=== PATIENT | female | born 1990 | race Caucasian/White ===

== ENCOUNTER 2017-05-16 16:55 | Inpatient (IN) | payer MEDICAID ==
[~2017-05-16] VITALS: Ht 170.2 cm; Wt 95.3 kg
--- NOTE | 2017-05-16 16:56 | NUR ---
PT BIBA TO BED 10
[2017-05-16 17:00] VITALS: BP 146/95
[2017-05-16] MEDS ORDERED: LORazepam 2 MG/ML VIAL IM/IVP STA ×2 (17:04→19:16)
[2017-05-16] MEDS ORDERED: diphenhydrAMINE 50 MG/ML VIAL IM ONE (17:05)
[2017-05-16] MEDS ORDERED: HALOPERIDOL IM 5 MG/ML VIAL IM ONE ×2 (17:05→19:20)
--- NOTE | 2017-05-16 17:05 | NUR ---
PT COMES TO ER, AGITATED, SCREAMING, [place] [employer] AT BEDSIDE, PT COMES IN WITH 4 POINT RESTARINS AND SPIT MASK OVER FACE. PER PD, PT WAS SHOPLIFTING, RAN OUT OF STORE WHEN APPREHENDED AND STARTED TO HIT HER FACE ON CEMENT. NO OBVIOUS INJURY NOTED, NO OPEN WOUNDS. PT CRYING, MOVING ALL EXTREMEITIES WHEN IN ATTEMPT TO TRANSFER TO BED.
--- NOTE | 2017-05-16 18:02 | NUR ---
EKG DONE, PT WITH EYES CLOSED, SNORING. ON MONITOR VSS.
[2017-05-16 18:31] LABS: BASOPHILS # (AUTO) 0.2 K/uL (0.00-0.22); BASOPHILS % (AUTO) 1.9 % (0.0-2.0); EOSINOPHILS # (AUTO) 0.1 K/uL (0-0.4); EOSINOPHILS % (AUTO) 0.6 % (0.0-4.0); HEMATOCRIT 35.9 % (36-48); HEMOGLOBIN 11.9 g/dL (12.0-16.0); MEAN CORPUSCULAR HEMOGLOBIN 29 pg (27-31); MEAN CORPUSCULAR HGB CONC 33 g/dL (33-37); MEAN CORPUSCULAR VOLUME 88 fL (80-94); MONOCYTES # (AUTO) 0.5 K/uL (0.8-1.0); MONOCYTES % (AUTO) 4.3 % (1.7-9.3); NEUTROPHILS # (AUTO) 7.7 K/uL (1.8-7.7); NEUTROPHILS % (AUTO) 74.2 % (42.2-75.2); PLATELET COUNT (AUTO) 327 K/uL (140-450); RED BLOOD CELL COUNT(AUTO) 4.08 MIL/uL (4.20-5.40); RED CELL DISTRIBUTION WIDTH 12.3 % (11.6-13.7); WHITE BLOOD COUNT (AUTO) 10.5 K/uL (4.8-10.8)
--- NOTE | 2017-05-16 18:39 | NUR ---
IN AND OUT CATH DONE WITH STERILE TECHNIQUE, PT TOLERATED WELL. URINE SENT TO LAB, PREG-NEGATIVE.
[2017-05-16 18:48] LABS: ALBUMIN 3.3 g/dL (3.4-5.0); ANION GAP 15.8 (8-16); ASPARTATE AMINOTRANSFERASE 25 U/L (15-37); CHLORIDE 107 mmol/L (98-107); CREATININE 0.7 mg/dL (0.6-1.3); GFR ARICAN-AMERICAN 132 mL/min (>90); GLUCOSE 88 mg/dL (74-106); SODIUM SERUM 142 mmol/L (136-145); TOTAL BILIRUBIN 0.2 mg/dL (0.0-1.0); UREA NITROGEN, BLOOD 12 mg/dL (7-18)
--- NOTE | 2017-05-16 18:49 | NUR ---
POTASSIUM LEVEL 2.8, DR TORO INFORMED. Addendum: 05/16/17 at 1855 by INGRID PT ON MONITOR, WALDO
[2017-05-16 18:50] LABS: ACETAMINOPHEN < 0.5 ug/ml (10-30); POTASSIUM 2.8 mmol/L (3.5-5.1); SALICYLATE < 2.8 mg/dL (2.8-20.0)
--- NOTE | 2017-05-16 18:50 | NUR ---
NO ACUTE CHANGES IN CONDITION, PT WITH EYES CLOSED, RESP EVEN AND UNLABORED, ON VIA NC @97%.
--- NOTE | 2017-05-16 19:10 | NUR ---
RECEIVED REPORT FROM ERASMO SAHU
--- NOTE | 2017-05-16 19:10 | NUR ---
NO SPIT MASK AND 4-POINT RESTRAINTS NOTED AT THIS TIME
--- NOTE | 2017-05-16 19:10 | NUR ---
PT EXREMELY AGITATED, COMBATIVE AND YELLING. ER MD BHAGAT AT BEDSIDE
[2017-05-16 19:14] LABS: APPEARANCE,URINE CLEAR (CLEAR); BILIRUBIN,URINE NEGATIVE (NEGATIVE); BLOOD, URINE NEGATIVE (NEGATIVE); COLOR,URINE YELLOW (YELLOW); LEUKOCYTE ESTERASE ,URINE NEGATIVE (NEGATIVE); NITRITE, URINE NEGATIVE (NEGATIVE); UGLUCOSE NEGATIVE (NEGATIVE)
[2017-05-16 19:20] LABS: BARBITURATE, URINE NEG. ng/ml (NEG <=200); BENZODIAZEPINE, URINE NEG. ng/mL (NEG <=200); CANNABINOID, URINE NEG. ng/mL (NEG <=50); COCAINE, URINE NEG. ng/mL (NEG <=300); OPIATE, URINE NEG. ng/mL (NEG <=2000); PHENCYCLIDINE SCREEN,URINE NEG. ng/mL (NEG <=25)
[2017-05-16] MEDS ORDERED: POTASSIUM CHL 20 MEQ/NACL 0.9% 1,000 ML IV ONE (19:45)
--- NOTE | 2017-05-16 20:00 | NUR ---
Patient appears to be resting comfortably in bed. Vital Signs within normal limits. Respirations even and unlabored.patient calm and asleep
--- NOTE | 2017-05-16 20:30 | NUR ---
BELONGINGS FOUND ON FLOOR, SECURITY CALLED AND PICKED UP BELONGINGS
--- NOTE | 2017-05-16 21:30 | NUR ---
Patient appears to be resting comfortably in bed. Vital Signs within normal limits. Respirations even and unlabored.
--- NOTE | 2017-05-16 22:30 | NUR ---
Patient appears to be resting comfortably in bed. Vital Signs within normal limits. Respirations even and unlabored.
--- NOTE | 2017-05-16 23:30 | NUR ---
Patient appears to be resting comfortably in bed. Vital Signs within normal limits. Respirations even and unlabored.
[2017-05-16 23:52] LABS: ANION GAP 11.1 (8-16); CARBON DIOXIDE 25.3 mmol/L (21-32); CREATININE 0.6 mg/dL (0.6-1.3); POTASSIUM 3.4 mmol/L (3.5-5.1)
--- NOTE | 2017-05-17 00:30 | NUR ---
Patient appears to be resting comfortably in bed. Vital Signs within normal limits. Respirations even and unlabored.
--- NOTE | 2017-05-17 01:30 | NUR ---
Patient appears to be resting comfortably in bed. Vital Signs within normal limits. Respirations even and unlabored.
[2017-05-17] MEDS ORDERED: NACL 0.9% 1,000 ML IV SCH ×2 (02:13)
[2017-05-17] MEDS ORDERED: DOCUSATE SODIUM 100 MG GELCAP PO PRN (02:15)
[2017-05-17] MEDS ORDERED: ONDANSETRON 4 MG/2 ML VIAL IVP PRN ×2 (02:15)
[2017-05-17] MEDS ORDERED: ACETAMINOPHEN 325 MG TAB PO PRN ×2 (02:15)
[2017-05-17] MEDS ORDERED: HYDROcodone/APAP 7.5/325 MG 1 TAB PO PRN (02:15)
--- NOTE | 2017-05-17 02:30 | NUR ---
Patient appears to be resting comfortably in bed. Vital Signs within normal limits. Respirations even and unlabored.
--- NOTE | 2017-05-17 03:18 | NUR ---
Pt transferred to ICU6/TELE via BED.
--- NOTE | 2017-05-17 03:18 | NUR ---
Patient will be admitted to care of DAVID. Admited to ICU. Will go to room 6. Belongings list completed. BEDSIDE Report to TRUDI SAHU. IV PATENT
--- NOTE | 2017-05-17 03:30 | NUR ---
RECEIVED PT FROM ED TRANSPORT. PT REFUSING TO TRANSFER TO ICU BED. PT YELLING AT STAFF AND USING PROFANE LANGUAGE. SECURITY CALLED; ON STANDBY FOR PT.
--- NOTE | 2017-05-17 03:40 | NUR ---
PT TRANSFERRED TO BED AFTER FREQUENT REDIRECTION. SKIN BREAKDOWN NOTED; ABRASION TO RIGHT CHEEK. RIGHT UPPER ARM REDNESS NOTED. PT REFUSING TO ANSWER ADMISSION QUESTIONS, CURRENT VITAL SIGNS WNL. ALL SAFETY ALARMS CHECKED, BED IN LOWEST POSITION WILL CONTINUE TO MONITOR.
--- NOTE | 2017-05-17 03:40 | NUR ---
PT AROUSABLE RESPONDING TO NAME AFTER SEVERAL PROMPTS. PT WITHDRAWN, AND EASILY ANGERED WITH ASSESSMENT. S1 S2. LUNGS CTA. PT STATES SHE VOIDS. NO BM NOTED. ACTIVE BOWEL SOUNDS. ABRASION NOTED TO RIGHT UPPER FACIAL CHEEK. AND REDNESS TO RIGHT ARM. IV RUNNING INTO LEFT AC. NO S/S OF DISTRESS NOTED. WILL CONTINUE TO OBSERVE
[2017-05-17 04:00] VITALS: BP 147/84
--- NOTE | 2017-05-17 05:00 | NUR ---
PT ASLEEP, AROUSABLE. PT RESPONDING TO STAFF APPROPRIATELY. NO S/S OF SUICIDAL IDEATION. PT DENIES PAIN @ THIS TIME. WILL CONTINUE TO MONITOR.
[2017-05-17 05:38] LABS: HEMATOCRIT 35.3 % (36-48); HEMOGLOBIN 11.5 g/dL (12.0-16.0); MEAN CORPUSCULAR HEMOGLOBIN 29 pg (27-31); MEAN CORPUSCULAR HGB CONC 33 g/dL (33-37); MEAN CORPUSCULAR VOLUME 89 fL (80-94); PLATELET COUNT (AUTO) 313 K/uL (140-450); RED BLOOD CELL COUNT(AUTO) 3.98 MIL/uL (4.20-5.40); RED CELL DISTRIBUTION WIDTH 12.4 % (11.6-13.7); WHITE BLOOD COUNT (AUTO) 7.5 K/uL (4.8-10.8)
[2017-05-17 05:56] LABS: CARBON DIOXIDE 27.8 mmol/L (21-32); CREATININE 0.6 mg/dL (0.6-1.3); POTASSIUM 3.8 mmol/L (3.5-5.1)
[2017-05-17 05:58] LABS: PROTHROMBIN TIME 10.2 secs (10.8-13.4)
[2017-05-17 06:18] LABS: CHOL/HDL RATIO 2.2 (1-4.5); FREE T4 (FREE THYROXINE) 0.95 ng/dL (0.76-1.46); MAGNESIUM 2.1 mg/dL (1.8-2.4); PHOSPHORUS 3.1 mg/dL (2.5-4.9)
[2017-05-17] MEDS ORDERED: LORazepam 2 MG/ML VIAL IVP PRN (06:45)
--- NOTE | 2017-05-17 07:18 | NUR ---
GAVE REPORT TO RECEIVING AM NURSE, ORDERS ENDORSED TO NEXT SHIFT. POC UPDATED. NO ACUTE DISTRESS NOTED.
--- NOTE | 2017-05-17 07:30 | NUR ---
RECEIVED REPORT FROM LEGAL OPERATIONS MANAGER RN, PT SLEEPING BUT EASILY AWAKIGN WITH INITIAL ASSESSMENT, BEDSIDE MONITOR SHOWS SR-ST. ROOM AIR, NO S/S OF RESPIRATORY DISTRESS NOTED. LUNG SOUND CLEAR, ABD SOFT NON TENDER. PT ABLE TO MOVE ALL HER EXTREMITIES.CALL LIGHT IN REACH, WILL CONTINUE TO MONITOR.
[2017-05-17 07:36] LABS: BASOPHILS % (MANUAL) 0 % (0-2); EOSINOPHILS % (MANUAL) 3 % (0-4); LYMPHOCYTES % (MANUAL) 44 % (20-46); MONOCYTES % (MANUAL) 7 % (5-12)
--- NOTE | 2017-05-17 07:45 | NUR ---
PT LEFT FOR CT, ACCOMPANIED WITH FILIBERTO AND RN
[2017-05-17 08:00] VITALS: BP 132/63
--- NOTE | 2017-05-17 08:03 | NUR ---
PT BACK TO ICU BED 5
[2017-05-17] MEDS: PANTOPRAZOLE 40 MG INJ VIAL IVP SCH (08:58)
[2017-05-17] MEDS: DOCUSATE SODIUM 100 MG GELCAP PO SCH ×2 (08:58→21:03)
[2017-05-17] MEDS: FOLIC ACID 1 MG TAB PO SCH (08:59)
[2017-05-17] MEDS: MULTIVITAMIN 1 TAB PO SCH (08:59)
[2017-05-17] MEDS: QUEtiapine FUMARATE 100 MG TAB PO SCH ×2 (08:59→21:00)
[2017-05-17] MEDS: THIAMINE 100 MG TAB PO SCH (08:59)
[2017-05-17] MEDS ORDERED: QUEtiapine FUMARATE 25 MG TAB PO SCH ×2 (09:00)
--- NOTE | 2017-05-17 09:40 | NUR ---
DR. ARORA MAKING ROUNDS, MADE HIM AWARE PT REFUSED BEDSIDE MONITORING. PER DR. ARORA " IT IS OK ".
--- NOTE | 2017-05-17 10:07 | NUR ---
Social Service Note: Per Art from [facility] , fax , they are still making efforts to find inpatient psych hospital placement for patient and will contact nurses' station once they do.
--- NOTE | 2017-05-17 11:50 | NUR ---
PT WOKE UP, YELLING AND SCREAMING , STATED SHE WANTS TO GO HOME, DOES NOT WANT TO STAY HERE. THEN WENT TO SLEEP AGAIN, LUNCH TRAY AT BEDSIDE.
--- NOTE | 2017-05-17 12:00 | NUR ---
PT REFUSED TO CHECK VITALS, CHARGE NURSE AWARE.
[2017-05-17] MEDS: LORazepam 1 MG TAB PO SCH ×2 (13:00→21:00)
--- NOTE | 2017-05-17 13:00 | NUR ---
ATIVAN DUE AT 1300 DID NOT GIVE PT WAS SLEEPING. CHARGE NURSE AWARE.
--- NOTE | 2017-05-17 13:25 | NUR ---
ECHO CANCELLED PER DR. ALVES.
[2017-05-17] MEDS ORDERED: PROBIOTIC SCREEN 1 EA MISC MC PRN (14:15)
--- NOTE | 2017-05-17 15:45 | NUR ---
DR. LLANOS IN TO ASSESS PT, WILL FOLLOW UP
--- NOTE | 2017-05-17 16:21 | NUR ---
OFFERED PT BED BATH, PT REFUSED, PT REFUSED TO CHANGE BLANKET . CHARGE NURSE AWARE.
[2017-05-17 16:34] VITALS: BP 119/83
--- NOTE | 2017-05-17 16:36 | NUR ---
PT AGREES TO TAKE VITALS AT THIS TIME.
--- NOTE | 2017-05-17 17:42 | NUR ---
CALLED PT'S MOTHER ( NUMBER GIVEN BY PT ) NO ANSWER.
--- NOTE | 2017-05-17 18:00 | NUR ---
CALLED PT'S GRANDFATHER [phone], PT'S GRANDFATHER TALKED TO CHARGE NURSE, GRANDFATHER DOES NOT WANT TO DISCLOSE PT'S MOTHER'S CELLPHONE NUMBER OR INVOLVEMENT IN THE CASE.
--- NOTE | 2017-05-17 19:00 | NUR ---
PT SLEEPING IN BED, NO S/S OF RESPIRATORY DISTRESS NOTED.
--- NOTE | 2017-05-17 19:30 | NUR ---
RECEIVED A REPORT FROM MORNING SHIFT RN, THALIA. PT IS ASLEEP AND CONTINUOUS CARDIAC MONITORING IS OFF AND BP IS OFF. THALIA STATED THAT THE PT WAS AGGRESSIVE AND TOOK ALL LEADS AND BP CUFF OFF AND DIDN'T WANT TO PUT IT BACK. ASKED PT IF THIS NURSE CAN ASSESS HER AND SHE SAID "FXXX OFF AND LEAVE ME ALONE". ASKED IF ANY PAIN AND SHE DENIES PAIN OR DISCOMFORT. ALL SAFETY PRECAUTIONS ARE IN PLACE. WILL CONTINUE TO MONITOR CLOSELY.
[2017-05-17 20:00] VITALS: BP 108/71
--- NOTE | 2017-05-17 20:00 | NUR ---
PT DID NOT LET STAFF TO PUT 5 LEAD CONTINUOUS CARDIAC MONITORING ON THE CHEST AND O2 SAT, BUT LET STAFF TO CHECK BP AND HR. EXPLAINED RISKS AND BENEFITS X 3 BUT UNSUCCESSFUL.
--- NOTE | 2017-05-17 20:05 | NUR ---
DR. GOODMAN MADE AWARE OF PT REFUSING CERTAIN V/S.
--- NOTE | 2017-05-17 20:41 | NUR ---
PT WAS ASKED FOR SCHEDULED MEDICATIONS AND IF SHE WANTS TO EAT THE DINNER TRAY THAT WAS LEFT BEHIND AND NOT EATEN AT ALL. PT GOT UP AND STARTED CURSING AT THE STAFF AND SQUEEZING THE WHOLE BREAD INTO HER MOUTH VERY AGGRESSIVELY AND THROWING MILK ONTO THE BED THE AND THE FLOOR, AND SAID "I FXXXING ATE 4 DINNERS ALREADY AND SEE I'M FXXXING EATING OK JUST SO THAT YOU DON'T FXXXING BOTHER THE SXXX OUT OF ME." THE STAFF ENCOURAGED PT TO SLOW DOWN ON EATING AND SHE SAID "WHO YOU FXXXING CARE. FXXX OFF." PT CONTINUES ON MAKING DEROGATORY COMMENTS ABOUT THE STAFF AND MAKING ACCUSATIONS THAT STAFF KEEPS ON FEEDING HER. STAFF TRIED TO CALM THE PT DOWN AND TRIED TO DISTRESS ABOUT THE SITUATION BUT UNSUCCESSFUL. EXPLAINED THREE SCHEDULED MEDICATIONS WHAT THEY ARE, PT STATED THAT SHE DOESN'T TAKE PSYCH MEDS AND TOOK ONLY STOOL SOFTENER. EXPLAINED RISKS AND BENEFITS X3. STILL REFUSED TO TAKE ATIVAN AND SEROQUEL. DR. GOODMAN MADE AWARE. WILL CONTINUE TO MONITOR.
--- NOTE | 2017-05-17 21:20 | NUR ---
RECEIVED A CALL FROM ALEJANDRO FROM [facility] AND SAID [facility] BUT THERE IS NO BED AT THIS TIME, AND WILL CONTINUE TO FOLLOW UP.
--- NOTE | 2017-05-17 22:40 | NUR ---
PT ASLEEP AT THIS TIME. NO S/SX OF ACUTE DISTRESS AND NO S/SX OF SUICIDAL RISK NOTED. ALL SAFETY PRECAUTIONS ARE IN PLACE. WILL CONTINUE TO MONITOR.
[2017-05-18] VITALS: BP 97/61
--- NOTE | 2017-05-18 00:08 | NUR ---
PT REFUSED CONTINUOUS AUTOMATIC PILOT MECHANIC, PULSE CHECK AND O2 SAT. PT ALLOWED THE AUTOMATIC BP CUFF TO BE LEFT. RISKS AND BENEFITS EXPLAINED. PT DENIES PAIN OR DISCOMFORT AND SUICIDAL IDEATION. ALL SAFETY PRECAUTIONS ARE IN PLACE.
--- NOTE | 2017-05-18 02:18 | NUR ---
PT MOOD CALM AT THIS TIME. OFFERED FOR A SET UP FOR BATHING OR HYGIENE BUT SHE SAID SHE DOESN'T NEED IT RIGHT NOW. DENIES SUICIDAL IDEATION. DENIES PAIN OR DISCOMFORT. PT STILL REFUSED TO PUT THE EARTH BURNER AND O2 SAT BUT OK FOR AUTOMATIC BP CUFF. ALL SAFETY PRECAUTIONS ARE IN PLACE. WILL CONTINUE TO MONITOR.
[2017-05-18 04:00] VITALS: BP 118/54
--- NOTE | 2017-05-18 04:10 | NUR ---
PT REFUSED CONTINUOUS CARDIAC MONITORING AND O2 SAT BUT LET THIS NURSE TO ASSESS BP AND PULSE. DENIES ANY PAIN OR DISCOMFORT. DENIES ANY SUICIDAL IDEATION. ALL SAFETY PRECAUTIONS ARE IN PLACE. PT MOOD STABLE AND NOT USING PROFANE LANGUAGE TO STAFF. PT ASKED IF HER GRANDFATHER AND HER MOTHER WERE CONTACTED. PT MADE AWARE THAT HER GRANDFATHER WAS CONTACTED YESTERDAY AND HE DID NOT WANT TO BE INVOLVED WITH HER CASE AND WOULD NOT GIVE HER MOTHER'S PHONE NUMBER, AND ALSO HER MOTHER'S PHONE NUMBER THAT PT PROVIDED TO STAFF WERE TRIED MULTIPLE TIMES BUT NO ANSWER AND NO CALL BACK. ALL SAFETY PRECAUTIONS ARE IN PLACE. WILL CONTINUE TO MONITOR.
[2017-05-18] MEDS: LORazepam 1 MG TAB PO SCH ×2 (04:37→13:00)
--- NOTE | 2017-05-18 04:38 | NUR ---
PT REFUSED SCHEDULED ATIVAN. RISKS AND BENEFITS EXPLAINED.
--- NOTE | 2017-05-18 06:00 | NUR ---
PT REFUSED MORNING CARE, HYGIENE, ADL ASSISTANCE. RISKS AND BENEFITS EXPLAINED. ORDER RECEIVED FROM DR. GOODMAN TO TRANSFER TO [facility]. TEST BORER HELPER MADE AWARE. AWAITING FOR A BED. PT MADE AWARE.
[2017-05-18 06:45] LABS: BASOPHILS # (AUTO) 0.1 K/uL (0.00-0.22); BASOPHILS % (AUTO) 2.1 % (0.0-2.0); EOSINOPHILS # (AUTO) 0.1 K/uL (0-0.4); EOSINOPHILS % (AUTO) 1.9 % (0.0-4.0); HEMATOCRIT 35.2 % (36-48); HEMOGLOBIN 11.4 g/dL (12.0-16.0); LYMPHOCYTES # (AUTO) 2.8 K/uL (2.5-16.5); LYMPHOCYTES % (AUTO) 45.7 % (20.5-51.1); MEAN CORPUSCULAR HEMOGLOBIN 29 pg (27-31); MEAN CORPUSCULAR HGB CONC 33 g/dL (33-37); MEAN CORPUSCULAR VOLUME 89 fL (80-94); MONOCYTES # (AUTO) 0.4 K/uL (0.8-1.0); MONOCYTES % (AUTO) 6.7 % (1.7-9.3); NEUTROPHILS # (AUTO) 2.7 K/uL (1.8-7.7); NEUTROPHILS % (AUTO) 43.6 % (42.2-75.2); PLATELET COUNT (AUTO) 311 K/uL (140-450); RED BLOOD CELL COUNT(AUTO) 3.96 MIL/uL (4.20-5.40); RED CELL DISTRIBUTION WIDTH 12.5 % (11.6-13.7); WHITE BLOOD COUNT (AUTO) 6.1 K/uL (4.8-10.8)
--- NOTE | 2017-05-18 07:15 | NUR ---
OBTAINED REPORT FROM LUIS ALBERTO CROUCH AT BEDSIDE, PT IS RESTING IN BED, AAOX4, REFUSED BREAKFAST, REFUSED VITAL SIGNS, DENIES PAIN, SKIN TEAR NOTED TO RIGHT CHEEK, PT STATED, " DON'T TOUCH ME!" NOT ABLE TO COMPLETE BODY ASSESSMENT AT THIS TIME. WILL TRANSFERRED TO MED/SURG WHEN BED IS READY.
[2017-05-18 07:16] LABS: ANION GAP 12.9 (8-16); CARBON DIOXIDE 25.6 mmol/L (21-32); CREATININE 0.6 mg/dL (0.6-1.3); POTASSIUM 3.5 mmol/L (3.5-5.1)
--- NOTE | 2017-05-18 07:50 | NUR ---
PT TRANSFERRED TO ROOM 123B VIA BED, ALL BELONGINGS GOES WITH PT, VSS, NO ACCIDENT OCCUR AT THIS TIME. REPORT GIVEN TO MST NURSE AT BEDSIDE.
--- NOTE | 2017-05-18 08:00 | NUR ---
RECEIVED PATIENT REPORT AT BEDSIDE FROM ICU NURSE. PATIENT IS AWAKE ALERT ORIENTED X4 AND SHOWS NO S/S OF ACUTE DISTRESS ON ROOM AIR. PATIENT DENIES PAIN. ON TELE MONITOR. IV NOTED ON THE LEFT AC SL. NOTED HEALED ABRASION ON THE RIGHT UPPER CHEEK; OTHERWISE, SKIN IS INTACT. DISCUSSED POC WITH PATIENT AND SHE VERBALIZED UNDERSTANDING. BED IN LOW POSITION WITH CALL LIGHT WITHIN REACH.
[2017-05-18] MEDS: QUEtiapine FUMARATE 100 MG TAB PO SCH (09:00)
--- NOTE | 2017-05-18 09:02 | NUR ---
CM NOTE PER [facility]# [phone], THEY HAVE SENT TO [facility], [place] [address] [place], [place] BUT NO BEDS AVAILABLE AND NO ACCEPTING FACILITY AT THIS TIME. I GAVE HER THE NUMBER TO THE NURSING FLOOR WHERE PATIENT IS IN CASE A BED BECOMES AVAILABLE AND IN CASE PATIENT GETS ACCEPTED TO PSYCH FACILITY AT A LATER TIME. CHARGE NURSE JOSE DANIEL GARCIA.
[2017-05-18] MEDS: DOCUSATE SODIUM 100 MG GELCAP PO SCH (10:00)
[2017-05-18] MEDS: FOLIC ACID 1 MG TAB PO SCH (10:00)
[2017-05-18] MEDS: PANTOPRAZOLE 40 MG INJ VIAL IVP SCH (10:00)
[2017-05-18] MEDS: THIAMINE 100 MG TAB PO SCH (10:00)
[2017-05-18] MEDS: MULTIVITAMIN 1 TAB PO SCH (10:00)
--- NOTE | 2017-05-18 10:00 | NUR ---
ADMINISTERED SCHEDULED MEDICATIONS, PATIENT REFUSED SEROQUEL 50 MG PO, PATIENT STATED, "I DON'T TAKE ANY PSYCH MEDS ANYMORE, I DON'T NEED IT." SITTER AT BEDSIDE. ALL NEEDS MET AT THIS TIME.
[2017-05-18 10:05] VITALS: BP 123/76
--- NOTE | 2017-05-18 10:38 | NUR ---
PATIENT HAS BEEN SCREENED AND CATEGORIZED LOW NUTRITION RISK. PATIENT WILL BE SEEN WITHIN 7 DAYS OF ADMISSION. 05/23/[address]
--- NOTE | 2017-05-18 13:00 | NUR ---
PATIENT REFUSED ATIVAN 1 MG PO. PATIENT STATED, "I DON'T NEED THIS MEDICATION, I AM FINE." PATIENT ENCOURAGED AND EDUCATED ABOUT THE USE OF MEDICATION, PATIENT CONTINUED TO REFUSE. ALL NEEDS MET AT THIS TIME.
--- NOTE | 2017-05-18 15:00 | NUR ---
PATIENT HAS SITTER AT BEDSIDE, AND SHOWS NO S/S OF ACUTE DISTRESS ON ROOM AIR. ALL NEEDS MET AT THIS TIME.
--- NOTE | 2017-05-18 15:36 | NUR ---
CM NOTE PER DIETETIC AIDE ALISA SEND REVIEWS ONLY TO [facility] FAX# [phone] PH# [phone]. INITIAL REVIEW FAXED TO [phone] PH# [phone].
[2017-05-18 16:26] VITALS: BP 133/88
--- NOTE | 2017-05-18 17:20 | NUR ---
[facility] aware of patient. Faxed referral to the following facilities: [facility]
--- NOTE | 2017-05-18 17:48 | NUR ---
GAVE PATIENT REPORT TO BETH SAHU FOR CONTINUITY OF CARE.
--- NOTE | 2017-05-18 19:00 | NUR ---
PATIENT HAS BEEN CLEARED OF [address] LLANOS INFORMED ME THAT PATIENT WOULD LIKE TO LEAVE AND THAT DR BERRIOS WON'T BE ON THE UNIT FOR ANOTHER HOUR AND SO THE PATIENT STATED THAT SHE NEEDED TO CATCH THE TRAIN TO TAKE TO [place]. DR LLANOS AWARE THAT PATIENT IS LEAVING AMA. PATIENT SIGNED FORM. REMOVED IV FROM SITE. CATHETER INTACT. REMOVED ID BAND. CALLED SECURITY FOR PATIENT'S BELONGINGS.
== END 2017-05-18 19:00 | disposition left against medical advice (07) | DRG 770 ==
LOC: MED 16:55 → MIC 05-17 02:13 → MTU 05-18 05:50
PROVIDERS: ADMIT Family Medicine; ATTEND Family Medicine
DX: F10.129 Alcohol abuse with intoxication, unspecified (principal); G92 Toxic encephalopathy; R45.851 Suicidal ideations; E87.8 Other disorders of electrolyte and fluid balance, not elsewhere classified; E44.1 Mild protein-calorie malnutrition; F31.89 Other bipolar disorder; E66.9 Obesity, unspecified; F23 Brief psychotic disorder; E83.51 Hypocalcemia; Y90.9 Presence of alcohol in blood, level not specified; Z53.21 Procedure and treatment not carried out due to patient leaving prior to being seen by health care provider; Z68.36 Body mass index [BMI] 36.0-36.9, adult
CPT/HCPCS: 36415; 70450; 71045; 80048; 80053; 80305; 81003; 81025; 82140; 83036; 83735; 83880; 84100; 84439; 84443; 84484; 85025; 85610; 85730; 87081; 93005; 96365; 96366; 96372; 99285; C1758; C9113; G0480; G0482; J1200; J1630; J2060; J7030; Q0092